=== PATIENT | male | born 1985 | race Hispanic/Latino ===

== ENCOUNTER 2019-09-02 16:43 | Emergency (ER) | payer BC ==
[2019-09-02] MEDS ORDERED: Ibuprofen 800 MG TAB ONE (18:47)
== END 2019-09-02 19:34 | disposition home or self-care (01) ==
LOC: ERS 16:43
DX: J10.1 Influenza due to other identified influenza virus with other respiratory manifestations (principal)
CPT/HCPCS: 87804; 99283